=== PATIENT | female | born 1950 | race Caucasian/White ===

== ENCOUNTER 2019-03-02 10:25 | Day surgery (SDC) | payer OTHER, MEDICARE ==
[~2019-03-02 10:25] MED LIST: CEFAZOLIN SODIUM 1 GM in DEXTROSE 5%-WATER 50 ML IV PRN
[2019-03-02] MEDS ORDERED: FENTANYL CITRATE INJ/PF 100 MCG/2 ML AMPUL ONE (11:30)
[2019-03-02] MEDS ORDERED: PROPOFOL INJ 200 MG/20 ML VIAL IV ONE (11:31)
[2019-03-02] MEDS ORDERED: ONDANSETRON HCL INJ/PF 4 MG/2 ML SDV ONE (11:31)
[2019-03-02] MEDS ORDERED: MIDAZOLAM 2 MG/2 ML INJ ONE (11:31)
[2019-03-02] MEDS ORDERED: SODIUM BICARBONATE 8.4% INJ 50 MEQ/50 ML DISP.SYRIN ONE (12:40)
[2019-03-02] MEDS ORDERED: LIDOCAINE 1% INJ-PF (10 MG/ML) 30 ML SDV ONE (12:40)
[2019-03-02] MEDS ORDERED: FENTANYL CITRATE INJ/PF 100 MCG/2 ML AMPUL IV PRN ×3 (13:10)
[2019-03-02] MEDS ORDERED: MEPERIDINE HCL/PF INJ 25 MG/1 ML DISP.SYRIN IV PRN (13:10)
[2019-03-02] MEDS ORDERED: MORPHINE SULFATE 10 MG/ML INJ IV PRN (13:10)
[2019-03-02] MEDS ORDERED: OXYCODONE-ACETAMINOPHEN 5-325 MG TABLET PO PRN ×2 (13:10)
[2019-03-02] MEDS ORDERED: DIPHENHYDRAMINE HCL 50 MG/ML VIAL IV PRN (13:10)
[2019-03-02] MEDS ORDERED: ONDANSETRON HCL INJ/PF 4 MG/2 ML SDV IV PRN (13:10)
--- NOTE | 2019-03-02 14:06 | Operative Report ---
Operative Report DATE OF SURGERY: 03/02/19 PREOPERATIVE DIAGNOSIS: IT pump malfunction POSTOPERATIVE DIAGNOSIS: IT pump malfunction OPERATION: IT pump removal SURGEON: MICHAEL IQBAL 1ST POWER ENGINEER: TIMOTEO BAILEY ANESTHESIA: LMAC TISSUE REMOVED OR ALTERED: IT pump removed COMPLICATIONS: none ESTIMATED BLOOD LOSS: minimal INTRAOPERATIVE FINDINGS: no complications PROCEDURE: Procedure Detail: After obtaining informed consent and advising the patient of the risks and natividad efits, including serious neurological injury, bleeding and infection, allergic reaction and , the patient was taken to the operating room. The patient was placed comfortably in the supine. Comfort was assessed visually and verbally. The patient was then prepped with chlorhexidine with a suitable drying time prior to drapping. The pump pocket was readily palpable and site marked in the RLQ. The previous incisional scar was anesthetized with 1% lidocaine with bicarbonate. Sharp and blunt dissection were performed down to the pump taking care to avoid the catheter. This was readily identified. Electrocautery was minimally necessary for hemostasis. The old pump was removed easily. The catheter was tied off using O mersylene with no drainage appreciated and pump removed to be sent off to [facility]. The wound was then copiously irrigated with Betadine containing irrigation solution. The site was then closed with interrupted vertical mattress sutures with 3-0 Polysorb. The skin came together nicely. The region was cleansed again followed by placement of dermabond tape and cement. When this was dry, suitable tegaderm sponge dressing was placed. The patient was then taken back to PACU for postoperative care and monitoring. The patient will follow up tomorrow in clinic for wound check.
[2019-03-02] MEDS ORDERED: MORPHINE SULFATE IR 15 MG TABLET PO PRN (14:21)
[2019-03-02] MEDS ORDERED: CEFAZOLIN INJ 1 GM VIAL IV PRN (14:27)
[2019-03-02] MEDS ORDERED: CEFAZOLIN INJ 1 GM VIAL ONE (14:51)
[2019-03-02 16:19] VITALS: BP 124/60
== END 2019-03-02 16:05 | disposition home or self-care (01) ==
LOC: OROUT 10:25
PROVIDERS: ATTEND Student in an Organized Health Care Education/Training Program
DX: G89.4 Chronic pain syndrome (principal); M96.1 Postlaminectomy syndrome, not elsewhere classified; M54.17 Radiculopathy, lumbosacral region; J45.909 Unspecified asthma, uncomplicated; E07.9 Disorder of thyroid, unspecified
CPT/HCPCS: 62365; 00300; J2250; J0690; J3010; J3490 ×2; J2405; J7060; J2704; 300